=== PATIENT | female | born 1995 | race Caucasian/White ===

== ENCOUNTER 2020-01-08 12:14 | Emergency (ER) | payer MEDICAID, SELFPAY ==
[~2020-01-08] VITALS: Ht 162.6 cm; Wt 86.2 kg
--- NOTE | 2020-01-08 12:59 | NUR ---
TASK RN NOTE: PT PRESENTS TO ED WITH INTERMITTENT DIZZINESS X3 DAYS. NO NOTED WEAKNESS, SPEECH CLEAR. PT DENIES PAIN OR DECREASE IN URINATION OR PO FLUID INTAKE. PT DENIES RELIEF OR INCREASE IN DIZZINESS WITH ANY ACTIVITY OR CHANGE IN POSITION. NAD NOTED AT THIS TIME. AWAITING COLBY CASTRO.
--- NOTE | 2020-01-08 13:31 | NUR ---
URINE CUP IN ROOM. PT AWARE OF UA. LAB AT BEDSIDE.
--- NOTE | 2020-01-08 13:35 | NUR ---
pt amb to br with steady gait at this time.
--- NOTE | 2020-01-08 13:48 | NUR ---
pt is not able to provide urine sample at this time.
[2020-01-08 13:49] LABS: BASOPHILS # (AUTO) 0.04 x10^3/uL (0-0.1); BASOPHILS % (AUTO) 1 % (0-1); EOSINOPHILS # (AUTO) 0.16 x10^3/uL (0-0.4); EOSINOPHILS % (AUTO) 2 % (1-7); LYMPHOCYTES # (AUTO) 1.44 x10^3/uL (1-3.4); LYMPHOCYTES % (AUTO) 21 % (22-44); MD NO; MEAN CORPUSCULAR HEMOGLOBIN 28.2 pg (27.0-34.8); MEAN CORPUSCULAR HGB CONC 32.3 g/dL (32.4-35.8); MEAN CORPUSCULAR VOLUME 87.4 fL (80-100); MEAN PLATELET VOLUME 9.4 fL (7.4-10.4); MONOCYTES # (AUTO) 0.58 x10^3/uL (0.2-0.8); MONOCYTES % (AUTO) 9 % (2-9); NEUTROPHILS # (AUTO) 4.59 x10^3/uL (1.8-6.8); NEUTROPHILS % (AUTO) 67 % (42-75); PLATELET COUNT 240 x10^3/uL (130-400); RED BLOOD COUNT 4.55 x10^6/uL (3.82-5.3); RED CELL DISTRIBUTION WIDTH 12.9 % (9.6-15.2)
[2020-01-08 13:56] LABS: ALBUMIN 3.8 g/dL (3.4-5.0); ANION GAP 5 mmol/L (5-15); CALCIUM 9.6 mg/dL (8.5-10.1); CHLORIDE 112 mmol/L (98-107); CREATININE 0.86 mg/dL (0.55-1.02)
--- NOTE | 2020-01-08 13:58 | NUR ---
pt provided urine sample at this time. urine collected and ua sent.
[2020-01-08] MEDS ORDERED: MECLIZINE CHEWABLE 25 MG TAB PO ONE (14:00)
[2020-01-08 14:10] LABS: HCG UR SG 1.026 (1.003-1.030)
--- NOTE | 2020-01-08 14:15 | NUR ---
pt refused antivert at this time.
[2020-01-08 14:30] LABS: MICROSCOPIC INDICATED
[2020-01-08 15:04] VITALS: BP 110/60
--- NOTE | 2020-01-08 15:25 | NUR ---
Patient given discharge instructions and they have confirmed that they understand the instructions. Patient ambulatory with steady gait.
== END 2020-01-08 15:26 | disposition home or self-care (01) ==
LOC: ED 13:08
DX: N39.0 Urinary tract infection, site not specified (principal); R42 Dizziness and giddiness
CPT/HCPCS: 36415; 80048; 81001; 81025; 82040; 84443; 85025; 87086; 93005; 99284

== ENCOUNTER 2020-02-11 07:21 | Emergency (ER) | payer SELFPAY ==
[~2020-02-11] VITALS: Ht 162.6 cm; Wt 78.6 kg
--- NOTE | 2020-02-11 07:52 | NUR ---
RILEY collected and sent to lab by Jaclyn PAUL
--- NOTE | 2020-02-11 08:04 | NUR ---
ULTRASOUND SPECIALIST: PT AMBULATORY TO ROOM FROM LOBBY
[2020-02-11 08:08] LABS: MICROSCOPIC INDICATED
--- NOTE | 2020-02-11 08:16 | NUR ---
first contact with pt. pt c/o painful urination x 1 week. lmp about 1 week ago. pt denies any other sx. pt's aox4. resps even and unlabored. bp/spo2 monitors in place. call light within reach. pt stated"i peed in the cup already and gave it to a nurse"
[2020-02-11] MEDS ORDERED: PHENAZOPYRIDINE 200 MG TABLET ONE (08:51)
[2020-02-11 08:53] VITALS: BP 95/59
--- NOTE | 2020-02-11 08:54 | NUR ---
PT MEDICATED PER EMAR. PT TOLERATED WELL.
[2020-02-11] MEDS ORDERED: PHENAZOPYRIDINE 200 MG TABLET PO ONE (09:00)
--- NOTE | 2020-02-11 09:10 | NUR ---
Patient given discharge instructions and they have confirmed that they understand the instructions.
== END 2020-02-11 09:11 | disposition home or self-care (01) ==
LOC: ED 08:21
DX: N30.00 Acute cystitis without hematuria (principal); Z59.0 Homelessness
CPT/HCPCS: 81001; 87086; 99283